=== PATIENT | female | born 2005 | race Caucasian/White ===

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

== ENCOUNTER 2025-03-29 07:47 | Emergency (ER) | payer OTHER, SELFPAY ==
[2025-03-29 07:49] VITALS: BP 110/74; PULSE 92; RESP 19; TEMP 36.3; O2SAT 100; BMI 20.7
[2025-03-29 07:56] VITALS: O2SAT 100
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
--- OUTSIDE RECORDS SUMMARY | 2025-03-29 08:23 | XMS RPT_ITS | CCD ---
Author Organization [facility] Care Team Providers Care Block Trimmer Name Role Phone Delicia Nichols Attending Gerard Amaya Referring Unavailable Gerard Felipe Primary Care Unavailable Delicia Nichols Attending Gerard Amaya Primary Care Unavailable Care Physician, No Primary Primary Care Unava ilJorden Katz Attending Unavailable Problems Active Problems Problem Classification Problem Date Documented Da te Episodic/Chronic Abdominal pain (1 source) Lower abdominal pain, unspecified; Translations: [Lower abdominal pain, unspecified] Onset: 09-29-2022 Episodic Past or Other Problems Problem Classification Problem Date Documented Date Episodic/Chronic Other female genital disorders (1 source) Other specified noninflammatory disorders of vagina; Translations: [Other specified noninflammatory disorders of vagina] Onset: 10-09-2021 Episodic Results Test Name Value Interpretation Reference Range Facility Abdomen/Pelvis WITH Contrast on 09-23-2022 Abdomen/Pelvis WITH Contrast [facility] [address] [place] [address] Abdomen/Pelvis WITH Contrast MR#: [id number] Acct: [id number] Name: JUAN MEJIA Rep #: [id number] : 2005 F 16 From: Akua Cantrell PCP: Care Physician,No Primary Status: REG ER Study: Abdomen/Pelvis WITH Contrast Date of Exam: Exam# [id number] Ordering Dr: Jorden Doyle DO STUDY: CT ABDOMEN AND PELVIS WITH CONTRAST - URINARY TRACT REASON FOR EXAM: Female, 16 years old. RLQ pain RADIATION DOSAGE (If Supplied By Facility): CTDIvol = ( 6.23 ) mGy, DLP = ( 278.95 ) mGycm TECHNIQUE: Oral and amp; IV Gastrografin and amp; 75mL Isovue-370 was administered. Transaxial images were obtained from the dome of the diaphragm to the symphysis pubis in the arterial, nephrographic and excretory phases. Multiplanar coronal and sagittal images were reformatted. Individualized Dose Optimization Techniques Were Used For This CT. COMPARISON: FINDINGS: The visualized lung bases are unremarkable. The visualized portions of the heart are within normal limits. Normal liver. Normal gallbladder and extrahepatic biliary system. Normal spleen. Normal pancreas. Normal bilateral adrenal glands. Normal visualized stomach. Normal small intestine. Normal colon. The appendix is visualized and appears normal. Normal abdominal aorta. No retroperitoneal adenopathy. Normal right kidney. Normal left kidney. Normal urinary bladder. Normal abdominal wall. Normal osseous structures. CT/Abdomen/Pelvis WITH Contrast IMPRESSION: Unremarkable study. Electronically Signed: Akua Lucio MD at 3:01 EDT Reading Location ID and State: [facility] / [place] Tel , Service support , CC: Dr. Jorden Doyle DO; No Primary Care Physician Flag Maker: Signed Normal [facility] CBC W/Diff, Automatedon 06-2 0-2022 Absolute Lymph 1.51 X10 3/uL Normal 0.83-4.51 [facility] Comment on above: Performed By: #### L 501.2450, L500.4050, L100.0100 #### [facility] [address] [place], [address] Absolute Neut 3.3 X10 3/uL Normal 2.0-7.7 [facility] Comment on above: Performed By: #### L 501.2450, L500.4050, L100.0100 #### [facility] [address] [place], [address] Basophils/100 WBC (Bld) 0.2 % Normal 0-1 [facility] Comment on above: Performed By: #### L 501.2450, L500.4050, L100.0100 #### [facility] [address] [place], [address] Eosinophils/100 WBC (Bld) 0.2 % Normal 0-3 [facility] Comment on above: Performed By: #### L 501.2450, L500.4050, L100.0100 #### [facility] [address] [place], [address] Erythrocyte distribution width (RBC) [Ratio] 12.0 % Normal 11.6-14.6 [facility] Comment on above: Performed By: #### L 501.2450, L500.4050, L100.0100 #### [facility] [address] [place], [address] Hematocrit (Bld) [Volume fraction] 36.9 % Low 37-46 [facility] Comment on above: Performed By: #### L 501.2450, L500.4050, L100.0100 #### [facility] [address] [place], [address] Hemoglobin (Bld) [Mass/Vol] 12.8 g/dL Normal 12.0-15.0 [facility] Comment on above: Performed By: #### L 501.2450, L500.4050, L100.0100 #### [facility] [address] [place], [address] IG% 0.400 Normal 0.0-0.9 [facility] Comment on above: Result Comment: IG% - Immature Granulocytes (promyelocytes, myelocytes and metamyelocytes) > 1% indicates that a LEFT SHIFT is Present. Performed By: #### L 501.2450, L500.4050, L100.0100 #### [facility] [address] [place], [address] Lymphocytes/100 WBC (Bld) 29.0 % Normal 25-45 [facility] Comment on above: Performed By: #### L 501.2450, L500.4050, L100.0100 #### [facility] [address] [place], [address] MCH (RBC) [Entitic mass] 28.9 pg Normal 25.0-35.0 [facility] Comment on above: Performed By: #### L 501.2450, L500.4050, L100.0100 #### [facility] [address] [place], [address] MCHC (RBC) [Mass/Vol] 34.7 g/dL Normal 32-36 [facility] Comment on above: Performed By: #### L 501.2450, L500.4050, L100.0100 #### [facility] [address] [place], [address] MCV (RBC) [Entitic vol] 83.3 fL Normal 78-96 [facility] Comment on above: Performed By: #### L 501.2450, L500.4050, L100.0100 #### [facility] [address] [place], [address] Monocytes/100 WBC (Bld) 6.3 % High 3-6 [facility] Comment on above: Performed By: #### L 501.2450, L500.4050, L100.0100 #### [facility] [address] [place], [address] Neutrophils/100 WBC (Bld) 63.9 % Normal 34-64 [facility] Comment on above: Performed By: #### L 501.2450, L500.4050, L100.0100 #### [facility] [address] [place], [address] Nucleated RBC (Bld) [#/Vol] 0 10*3/uL Normal 0-5 [facility] Comment on above: Performed By: #### L 501.2450, L500.4050, L100.0100 #### [facility] [address] [place], [address] Platelet mean volume (Bld) [Entitic vol] 9.6 fL Normal 6.2-12.0 [facility] Comment on above: Performed By: #### L 501.2450, L500.4050, L100.0100 #### [facility] [address] [place], [address] Platelets (Bld) [#/Vol] 157 10*3/uL Normal 150-450 [facility] Comment on above: Performed By: #### L 501.2450, L500.4050, L100.0100 #### [facility] [address] [place], [address] RBC (Bld) [#/Vol] 4.43 10*6/uL Normal 4.1-4.8 [facility] Comment on above: Performed By: #### L 501.2450, L500.4050, L100.0100 #### [facility] [address] [place], [address] RDW SD 37.0 fl Normal 35.1-43.9 [facility] Comment on above: Performed By: #### L 501.2450, L500.4050, L100.0100 #### [facility] [address] [place], [address] WBC (Bld) [#/Vol] 5.2 10*3/uL Normal 4.5-13.0 [facility] Comment on above: Performed By: #### L 501.2450, L500.4050, L100.0100 #### [facility] [address] [place], [address] Comprehensive Metabolic Prof ohnatasha 09-23-2022 Albumin [Mass/Vol] 3.6 g/dL Normal 3.2-5.0 [facility] Comment on above: Performed By: #### L 501.2450, L500.4050, L100.0100 #### [facility] [address] [place], [address] Albumin/Globulin [Mass ratio] 1.1 {ratio} Normal 0.9-2.4 [facility] Comment on above: Performed By: #### L 501.2450, L500.4050, L100.0100 #### [facility] [address] [place], [address] ALK P 58 U/L Normal 47-119 [facility] Comment on above: Performed By: #### L 501.2450, L500.4050, L100.0100 #### [facility] [address] [place], [address] ALT [Catalytic activity/Vol] 16 U/L Normal 13-56 [facility] Comment on above: Performed By: #### L 501.2450, L500.4050, L100.0100 #### [facility] [address] [place], [address] AST [Catalytic activity/Vol] 11 U/L Low 15-37 [facility] Comment on above: Performed By: #### L 501.2450, L500.4050, L100.0100 #### [facility] [address] [place], [address] Bilirubin [Mass/Vol] 0.30 mg/dL Normal 0.20-1.00 [facility] Comment on above: Result Comment: For patients on eltrombopag therapy, use of Dimension [place] TBIL is not recommended. Performed By: #### L 501.2450, L500.4050, L100.0100 #### [facility] [address] [place], [address] BUN/CRE 13.2 RATIO Normal 10-20 [facility] Comment on above: Performed By: #### L 501.2450, L500.4050, L100.0100 #### [facility] [address] [place], [address] CA,Total 9.0 mg/dL Normal 8.5-10.1 [facility] Comment on above: Performed By: #### L 501.2450, L500.4050, L100.0100 #### [facility] [address] [place], [address] Chloride [Moles/Vol] 107 mmol/L Normal 98-107 [facility] Comment on above: Performed By: #### L 501.2450, L500.4050, L100.0100 #### [facility] [address] [place], [address] CO2 [Moles/Vol] 26.0 mmol/L Normal 21.0-32.0 [facility] Comment on above: Performed By: #### L 501.2450, L500.4050, L100.0100 #### [facility] [address] [place], [address] Creatinine [Mass/Vol] 0.83 mg/dL Normal 0.55-1.02 [facility] Comment on above: Result Comment: The validity of the calculated GFR GFRAA in patients over 70 years has not been determined. Clinical correlation is essential. Performed By: #### L 501.2450, L500.4050, L100.0100 #### [facility] [address] [place], [address] ECRCL 97.89 ml/min Normal [facility] Comment on above: Performed By: #### L 501.2450, L500.4050, L100.0100 #### [facility] [address] [place], [address] EST GFR TNP Normal >60 [facility] Comment on above: Result Comment: Non- GFR Calc Performed By: #### L 501.2450, L500.4050, L100.0100 #### [facility] [address] [place], [address] EST GFR - AA TNP Normal >60 [facility] Comment on above: Result Comment: Afri can [place] GFR Calc Performed By: #### L 501.2450, L500.4050, L100.0100 #### [facility] [address] [place], [address] GAP 6 Normal 5-15 [facility] Comment on above: Performed By: #### L 501.2450, L500.4050, L100.0100 #### [facility] [address] [place], [address] Globulin (S) [Mass/Vol] 3.2 g/dL Normal 2.2-4.2 [facility] Comment on above: Performed By: #### L 501.2450, L500.4050, L100.0100 #### [facility] [address] [place], [address] Glucose [Mass/Vol] 107 mg/dL High 74-106 [facility] Comment on above: Result Comment: Fast ing Glucose result from 100 to 125 mg/dL suggests IMPAIRED HOMEOSTASIS per A.D.A. criteria. Performed By: #### L 501.2450, L500.4050, L100.0100 #### [facility] [address] [place], [address] Potassium [Moles/Vol] 3.4 mmol/L Low 3.5-5.1 [facility] Comment on above: Performed By: #### L 501.2450, L500.4050, L100.0100 #### [facility] [address] [place], [address] Sodium [Moles/Vol] 139 mmol/L Normal 136-145 [facility] Comment on above: Performed By: #### L 501.2450, L500.4050, L100.0100 #### [facility] [address] [place], [address] T PROT 6.8 g/dL Normal 6.4-8.2 [facility] Comment on above: Performed By: #### L 501.2450, L500.4050, L100.0100 #### [facility] [address] [place], [address] Urea nitrogen [Mass/Vol] 11 mg/dL Normal 7-18 [facility] Comment on above: Performed By: #### L 501.2450, L500.4050, L100.0100 #### [facility] [address] [place], [address] Emergency Department Summary on 09-23-2022 Emergency Department Summary [facility] Medical Records Department [address] [place] [address] Emergency Department Summary 09/23/22 MR#: [id number] Acct: [id number] Name: JUAN MEJIA Rep #: [id number] : 2005 16 From: Jorden Sarmiento PCP: Care Physician,No Primary Status:DEP ER Location: ED HPI HPI - GI History of Present Illness Chief Complaint: Abd Pain Informant: patient Narrative Narrative: With mother progressive lower abdominal pain since this morning. Nausea without vomiting no diarrhea normal bowel this afternoon. Daily bowel movements. No fevers. No abdominal surgeries no past med history. Last menstrual period just over a month ago, she denies any chance of . Nausea currently subsided. No urinary symptoms. Prior similar symptoms: No PFSH PFSH Home Medications NK 10/03/21 [History Last Taken Unknown] Allergy/AdvReac Type Severity Reaction Status Date / Time No Known Allergies Allergy Unverified 10/03/21 11:09 Family History Grandfather Heart disease Lymphoma Surgical History S/P tonsillectomy and adenoidectomy Social History Smoking Status: Never smoker alcohol intake: never substance use type: does not use ROS ROS ED Constitutional Constitutional ED: Denies chills, fever(s) or sweats Eyes Eyes: Denies change in vision ENT ENT ED: Denies dysphagia or sore throat Cardiovascular Cardiovascular: Denies chest pain, leg edema, palpitations or racing heartbeat Respiratory/Chest Respiratory/Chest: Denies cough, dyspnea or dyspnea on exertion Gastrointestinal Gastrointestinal: Reports abdominal pain and nausea; Denies diarrhea or vomiting Genitourinary Genitourinary ED: Denies dysuria, hematuria or urinary frequency Musculoskeletal Musculoskeletal: Denies back pain, extremity pain or neck pain Integumentary Denies rash or wounds Neurologic Neurologic: Denies headache(s), paresthesias or weakness EXAM Physical Exam Const Vital Signs: 09/22/22 23:58 09/23/22 03:15 Temperature 99.2 F Temperature Source Oral Pulse Rate 86 67 Respiratory Rate 17 17 Blood Pressure 125/86 H 122/87 H Blood Pressure Mean 99 Pulse Ox 100 100 Oxygen Delivery Method Room Air Positive well nourished and well developed General Appearance ED: well developed and NAD HEENT Reports moist mucous membranes normocephalic and atraumatic Eyes PERRL, EOMs intact bilaterally and conjunctivae normal General Eye ED: Yes normal appearance of both eyes Neck no lymphadenopathy and supple General: Negative for tenderness Chest Wall Chest: Negative for tenderness Resp normal respiratory effort and normal air movement Effort and Inspection: symmetric chest movement; Negative for respiratory distress Cardio regular rate, regular rhythm and no murmurs Peripheral Pulses: pulses 2+ throughout GI normal to inspection, nondistended, normoactive bowel sounds GI Narrative: Mild tenderness suprapubic right lower quadrant pubic region. No guarding or rebound. Negative Rovsing's. Negative Nettles's. Palpation: Negative for guarding or rebound tenderness present Back/Spine no CVA tenderness and no thoracic nor lumbar tenderness Extremity normal to inspection General Extremety ED: Negative for edema or tenderness General Extremity: Negative for edema Neuro oriented x3 and no sensory deficits noted Sensorium / Orientation: awake and alert Skin no rashes or lesions noted and no wounds MDM MDM MDM Narrative Medical decision making narrative: Interventions / MDM: Differential diagnosis: Appendicitis, ovarian cyst, colitis Diagnosis considered but do not suspect: Ectopic however negative hCG My EKG interpretation: N/A Imaging independently reviewed and interpreted by myself: CT abdomen pelvis p.o. and IV contrast: No acute process normal appendix also read by radiology. External documents reviewed: N/A Test considered but not ordered:N/A ED course: Patient vague lower abdominal pain slightly to the right. No guarding or rebound. Labs were obtained along with urine and . hCG returned negative. CT scan abdomen pelvis IV contrast ordered. Laboratory studies studies also negative. Re-evaluation: CT scan abdomen pelvis with a normal appendix no acute findings.0305: Abdomen soft on reevaluation. Nonspecific symptoms currently normal bowel movements. Discussed monitoring symptoms Tylenol ibuprofen as needed oral fluids for hydration with a soft diet. Return precautions. All questions were answered. Disposition discussed with patient/family/signif icant other: Patient and mother Case discussed with consulting clinician: N/A Lab Data La (more content not included)... Normal [facility] Lipaseon 09-23-2022 Lipase [Catalytic activity/Vol] 25 U/L Normal 13-75 [facility] Comment on above: Result Comment: Cassandra mukherjee note: LIPASE revised reference range effective 22. New Lipase methodology. Expected to produce lower values than the previous assay method. NEW Reference Range: 13 - 75 U/L Performed By: #### L 501.2450, L500.4050, L100.0100 #### [facility] [address] [place], [place], [address] ,Urineon 09-23-2022 Beta HCG ( test) Ql (U) Negative Normal [facility] Comment on above: Order Comment: CLEAN CATCH Result Comment: Very dilute urine specimens, as indicated by a low specific gravity, may not contain sales representative health insurance levels of hCG. If is still suspected, a first morning urine specimen should be collected 48 hours later and tested. Performed By: #### L 400.0001, L400.7600 #### [facility] [address] [place], [address] Urinalysis, Completeon 09-23 BACTERIA RARE Normal None Seen [facility] Comment on above: Order Comment: CLEAN CATCH Performed By: #### L 400.0001, L400.7600 #### [facility] [address] [place], [address] Mucus Ql (Urine sed) RARE Normal [facility] Comment on above: Order Comment: CLEAN CATCH Performed By: #### L 400.0001, L400.7600 #### [facility] [address] [place], [address] EPI,SQUAMOUS 0 SEEN Normal 5-10 [facility] Comment on above: Order Comment: CLEAN CATCH Performed By: #### L 400.0001, L400.7600 #### [facility] [address] [place], [address] RBC 0 SEEN Normal 0-5 [facility] Comment on above: Order Comment: CLEAN CATCH Performed By: #### L 400.0001, L400.7600 #### [facility] [address] [place], [address] WBC 0 SEEN Normal 0-5 [facility] Comment on above: Order Comment: CLEAN CATCH Performed By: #### L 400.0001, L400.7600 #### [facility] [address] [place], [address] Genital Culture Comprehensiv kerwin 10-06-2021 VAC Reason for Exam: vaginal discharge vaginal discharge Normal genital brian isolated Normal [facility] Comment on above: Performed By: #### M 100.2000, M100.3200 #### [facility] [address] [place], [address] Gram Stainon 10-03-2021 GS Reason for Exam: vaginal discharge vaginal discharge Gram Stain 4+ Gram positive rods 1+ Gram positive cocci 2+ Gram negative rods No White Blood Cells No Gram negative diplococci Score = 2 Interpretation: 0-3 Normal, 4-6 Intermediate, 7-10 Positive BV Normal [facility] Comment on above: Performed By: #### M 100.2000, M100.3200 #### [facility] [address] [place], [address] Windmill Technician Office Visit Reporton 10-03-2021 Windmill Technician Office Visit Report [facility] [address] [place] [address] OFFICE VISIT Date of Service: 10/03/21 MR#: [id number] Acct: [id number] Name: JUAN MEJIA Rep #: [id number] : 2005 Provider: Dr. Delicia Choudhary DO Age/Sex: 15/F Location[place] [facility] [place] Status: Signed Intake Vital Signs 10/03/21 11:08 Height 5 ft 4 in Weight: 119 lb 4 oz BMI 20.5 BP 90/70 L Intake Visit Reasons: discuss issues with frequent discharge [employer] Required: No Is patient in pain?: No Allergies No Known Allergies Allergy (Unverified 10/03/21 11:09) Medications NK 10/03/21 [History Confirmed 10/03/21] Post menopausal: No Patient : No : No PFSH Surgical History (Updated 10/03/21 @ 11:09 by Ashley Monzon) S/P tonsillectomy and adenoidectomy Family History (Updated 10/03/21 @ 11:10 by Ashley Monzon) Grandfather Heart disease Lymphoma Social History (Updated 10/03/21 @ 11:10 by Ashley Monzon) Smoking Status: Never smoker alcohol intake: never substance use type: does not use HPI discuss issues with frequent discharge Details: JUAN MEJIA is a 15 year old who presents for discussion about vaginal discharge. She states that it is worse mid month and the week prior to menses. The week after menses is the best with least amount of vaginal discharge. She denies itching or burning or foul odor. ROS Const ROS Unobtainable: All systems reviewed are unremarkable except as noted in H Resp Resp: Reports system reviewed and no additional complaints, except as documented; Denies cough GI GI: Reports as per HPI Psych Psych: Reports system reviewed and no additional complaints, except as documented Exam Const General: cooperative, healthy appearing, comfortable and no acute distress Resp Effort Inspection: normal respiratory effort General: bimanual renal exam normal bilaterally External Female Exam: normal appearance of the urethra Urethra: normal appearance of the urethra Skin General: no rashes or lesions noted Psych Appearance: grossly normal Speech and Movement: speech and movement normal Coding Level of Care Code Off vis,new,level 3 Diagnoses Vaginal discharge N89.8 Assessment and Plan Assessment and Plan (1) Vaginal discharge: Status: Acute Plan: likely physiologic. vaginitis swab ordered pt reassured. will call with results. Orders: Orders Culture, Genital Comprehensive Today N89.8 - Other specified noninflammatory disorders of vagina 10/03/21 1539 Date Delicia Nichols DO [facility] Signature: Date (if applicable) CC: Normal [facility] Encounters Encounter Date Encounter Type Care Provider Facility Start: 09-23-2022 End: 09-23-2022 Emergency department patient visit No Primary Care Physician Facility:[facility] Start: 10-03-2021 End: 10-03-2021 ambulatory Delicia Nichols Facility:[facility] Payers Date Payer Category Payer Unknown 0 2021 Self-pay Unknown [id number] Unknown [id number] Unknown [id number] Summary Purpose Family History No Family History Records Found Advance Directives No Advanced Directives Records Found Additional Source Comments INFORMATION SOURCE (unrecogn ized section and content) DATE CREATED AUTHOR 09/29/2022 [facility] FOR RECORDS PERTAINING TO PATIENTS WHO ARE OR HAVE BEEN ENROLLED IN A CHEMICAL DEPENDENCY/SUBSTANCEABUSE PROGRAM, SOME INFORMATION MAY BE OMITTED. This clinical summary was aggregated from multiple sources. Caution should be exercised in using it in the provision of clinical care. This summary normalizes information from multiple sources, and as a consequence, information in this document may materially change the coding, format and clinical context of patient data. In addition, data may be omitted in some cases. CLINICAL DECISIONS SHOULD BE BASED ON THE PRIMARY CLINICAL RECORDS. [facility]. provides no warranty or guarantee of the accuracy or completeness of information in this document.
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
[2025-03-29 08:42] VITALS: BP 107/73; PULSE 87; RESP 18; O2SAT 99
[2025-03-29 09:00] VITALS: BP 107/68; PULSE 96; RESP 12; O2SAT 100
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
--- NOTE | 2025-03-29 09:03 | EKG12_ITS ---
Test Reason : Blood Pressure : */* mmHG Vent. Rate : 92 BPM Atrial Rate : 92 BPM P-R Int : 126 ms QRS Dur : 80 ms QT Int : 368 ms P-R-T Axes : 60 89 33 degrees QTcB Int : 455 ms Normal sinus rhythm Normal ECG Confirmed by Liam Carter ([id number]), editor sound MANDO SANDOVAL ([id number]) on 03/31/2025 8:05:40 AM Referred By: Confirmed By: Liam Carter
[2025-03-29 09:11] LABS: Hematocrit 40.6 % (37-47); Hemoglobin 14.0 g/dL (12.0-15.0); Immature Granulocytes Count 0.020 X10^3/uL (0.0-0.0); Mean Corp Hgb Conc 34.5 g/dL (32-36); Mean Corpuscular Volume 85.1 fL (81-99); Mean Platelet Vol. 9.8 fl (6.2-12.0); NRBC Flagged by Analyzer 0 % (0-5); Platelet Count 210 K/mm3 (150-450); RBC Distribution Width CV 11.9 % (11.6-14.6); RBC Distribution Width SD 36.9 fl (35.1-43.9); Red Blood Count 4.77 M/mm3 (4.2-5.4); White Blood Count 5.4 K/mm3 (4.4-11.0)
[2025-03-29] MEDS: 0.9% Normal Saline (1000mL) 1,000 ML 999 ML IV (09:19)
[2025-03-29 09:25] LABS: Internal QC Validated? YES +Cl - CLEAR BKGD; Pregnancy, Serum, hCG Quali. NEGATIVE Negative
[2025-03-29 09:44] LABS: AST(SGOT) 46 U/L (<=31); Alanine Aminotransfer ALT/SGPT 30 U/L (<=34); Albumin, Serum 4.6 g/dL (3.5-5.0); Alkaline Phosphatase 57 U/L (35-104); Anion Gap 13 (7-18); BUN 12 mg/dL (4-19); BUN/Creat Ratio 13.8 RATIO (10-20); Bilirubin, Direct 0.18 mg/dL (0.00-0.30); Calcium,Total 9.6 mg/dL (7.6-11.0); Carbon Dioxide 24.0 mmol/L (20.0-29.0); Chloride 103 mmol/L (96-106); Estimated Creatinine Clearance 87.79 ml/min (50-250); Globulin 2.5 g/dL (2.2-4.2); Glucose 116 mg/dL (70-99); Potassium 3.4 mmol/L (3.5-5.1)
[2025-03-29 09:45] LABS: Partial Thromboplast Time 25.7 Seconds (24.1-36.2); Prothrombin Time (Protime)PT. 14.3 SECONDS (11.7-14.9)
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
[2025-03-29 10:17] VITALS: BP 101/68; PULSE 83; RESP 14; O2SAT 100
--- NOTE | 2025-03-29 10:18 | ED.RN ---
0950 vision changes per mother reported. pt says cannot see family members at bedside. pt will turn approp to voice but unable to stay focused on. dr. holman to room to assess with nurses. repeat ct ordered and pt to radiology. back to room and dr. holman talking with neurosurgeon and decision made to send [facility].
--- NOTE | 2025-03-29 10:32 | ED.RN ---
pt with small amt vomiting with dry heaving now once back from ct. mom at bedside. herminia set up for prn. new order for compazine ivp. pt moved up in bed and hob elevated./
[2025-03-29 10:56] VITALS: BP 93/58; PULSE 93; RESP 20; TEMP 37.1; O2SAT 100
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
== END 2025-03-29 11:01 | disposition short-term general hospital (02) ==
PROVIDERS: Emergency Provider Emergency Medicine; Visit Provider Emergency Medicine
DX: S06.6X9A Traumatic subarachnoid hemorrhage with loss of consciousness of unspecified duration, initial encounter (principal); V84.6XXA Passenger of special agricultural vehicle injured in nontraffic accident, initial encounter; R20.2 Paresthesia of skin
CPT/HCPCS: 70450; 71045; 72125; 72170; 73060; 73090; 80048; 80076; 84703; 85025; 85610; 85730; 93005; 96361; 96374; 96375; 99285; A4216; J2405